=== PATIENT | female | born 1935 | race Two or more races ===

== ENCOUNTER 2023-01-08 10:20 | Emergency (ER) | payer OTHER ==
[~2023-01-08] VITALS: Ht 152.4 cm; Wt 48.5 kg
[2023-01-08] MEDS ORDERED: SYNTHROID50 MCG (10:24)
[2023-01-08] MEDS ORDERED: CHILDREN'S ASPI81 MG (10:24)
[2023-01-08] MEDS ORDERED: TOPROL XL25 M1 (10:24)
[2023-01-08] MEDS ORDERED: LEVOTHYROXINE25 MCG (10:24)
[2023-01-08] MEDS ORDERED: CIPRO500 MG PO (13:46)
== END 2023-01-08 14:15 | disposition home or self-care (01) ==
LOC: ER 10:20
DX: M54.9 Dorsalgia, unspecified (principal); R30.0 Dysuria; I10 Essential (primary) hypertension; E03.9 Hypothyroidism, unspecified; Z88.2 Allergy status to sulfonamides

== ENCOUNTER 2024-08-10 11:08 | Emergency (ER) | payer OTHER ==
[~2024-08-10] VITALS: Ht 152.4 cm; Wt 49.4 kg
[~2024-08-10 11:08] MED LIST: CHILDREN'S ASPI81 MG; CIPRO500 MG PO; LEVOTHYROXINE25 MCG; SYNTHROID50 MCG; TOPROL XL25 M1
[2024-08-10] MEDS ORDERED: PROTONIX20 MG (11:30)
[2024-08-10] MEDS ORDERED: DEXAMETHASONE SODIUM PHOSPHATE 4 MG/ML VIAL IM ONE ×2 (12:45→15:15)
[2024-08-10] MEDS ORDERED: TYLENOL ARTHRI650 MG PO (15:06)
[2024-08-10] MEDS ORDERED: ACETAMINOPHEN 500 MG GEL..CAP PO ONE (15:15)
== END 2024-08-10 15:28 | disposition home or self-care (01) ==
LOC: ER 11:08
DX: M79.641 Pain in right hand (principal); M25.541 Pain in joints of right hand; M25.542 Pain in joints of left hand; Z91.013 Allergy to seafood; Z88.2 Allergy status to sulfonamides

== ENCOUNTER 2024-08-13 11:39 | Emergency (ER) | payer OTHER ==
[~2024-08-13] VITALS: Ht 152.4 cm; Wt 49.4 kg
[~2024-08-13 11:39] MED LIST changes: +PROTONIX20 MG; +TYLENOL ARTHRI650 MG PO
[2024-08-13] MEDS ORDERED: MEDROLPACK PO (11:50)
[2024-08-13] MEDS ORDERED: METHYLPREDNISOLONE SOD SUCC 40 MG VIAL IM ONE (12:00)
== END 2024-08-13 13:14 | disposition home or self-care (01) ==
LOC: ER 11:39
DX: M19.90 Unspecified osteoarthritis, unspecified site (principal); I10 Essential (primary) hypertension; E03.8 Other specified hypothyroidism; Z88.2 Allergy status to sulfonamides